=== PATIENT | female | born 1945 | race African-American/Black ===

== ENCOUNTER 2017-07-09 11:05 | Observation (INO) | payer OTHER, MEDICARE ==
[~2017-07-09] VITALS: Ht 162.6 cm; Wt 56.7 kg
--- NOTE | 2017-07-09 11:34 | ED GI/GU/ABDOMINAL COMPLAINT ---
History of Present Illness General Chief Complaint: Lower Extremity Problems Stated Complaint: LFT GROIN PAIN Source: patient Exam Limitations: poor historian Vital Signs & Intake/Output Vital Signs & Intake/Output Vital Signs Date Time Temp Pulse Resp B/P B/P Pulse O2 O2 Flow FiO2 Mean Ox Delivery Rate 07/09 1845 98.3 103 18 156/52 96 Room Air 07/09 1701 98.3 101 20 187/76 99 Room Air 07/09 1701 98.3 101 20 187/76 99 Room Air 07/09 1643 92 170/78 07/09 1530 97.7 88 18 166/78 98 Room Air 07/09 1340 97.7 80 18 158/70 99 Room Air 07/09 1334 97.7 97 16 210/92 07/09 1307 97.7 97 16 210 100 Room Air 07/09 1226 200/94 07/09 1154 96.4 145 16 220/94 07/09 1146 220/90 07/09 1146 16 212/82 100 Room Air 07/09 1140 100 07/09 1111 96.4 145 18 218/83 97 Room Air Allergies Coded Allergies: No Known Allergies (07/09/17) Reconcile Medications Aspirin (Aspirin*) 81 MG TAB.CHEW 81 MG PO DAILY Heart Health . Cholecalciferol (Vitamin D3) 1,000 UNIT TABLET 2,000 IU PO DAILY Vitamin D deficiency . Labetalol HCl 300 MG TABLET 1 TAB PO BID bp . Lisinopril 40 MG TABLET 1 TAB PO DAILY bp .. Triage Note: PT STATES SHE IS HAVING LOWER ABD PAIN THAT STARTED A COUPLE OF WEEKS AGO. PT STATES SHE IS MOVING HER BOWELS FINE AND DENIES URINARY DIFFICULTY. RTED Triage Nurses Notes Reviewed? yes HPI: This is a 71-year-old female with no known past medical history, not seen a doctor in many years who presents to the ER with chief complaint of left hip and left lower quadrant abdominal pain. Patient states the pain is been there actually for a few weeks. No fever or chills. No urinary symptoms. Normal bowel movements. She denies any headache blurred vision chest pain or shortness of breath. Patient found to be tachycardic and extremely hypertensive in triage. No known history of hypertension. She is a nonsmoker nondrinker. Denies any trauma. She does not have a primary care physician. (Angelica Jimenez MD) ? n Is pt currently ? No (Salomon Carrasco DO) Past History Travel History Traveled to [place] past 21 day No Medical History Any Pertinent Medical History? none Psychosocial History What is your primary language Frisian Tobacco Use: Never used ETOH Use: denies use Illicit Drug Use: denies illicit drug use (Angelica Jimenez MD) Surgical History Surgical History: non-contributory Family History Hx Contributory? No (Salomon Carrasco DO) Review of Systems Review of Systems Constitutional: Denies: chills, fever. EENTM: Reports: no symptoms. Respiratory: Denies: cough, short of breath, sputum production. Cardiovascular: Denies: chest pain. GI: Reports: see HPI (LEFT GROIN), abdominal pain. Genitourinary: Reports: no symptoms. Musculoskeletal: Reports: no symptoms. Skin: Reports: no symptoms. Neurological/Psychological: Reports: no symptoms. Hematologic/Endocrine: Denies: bruising, bleeding, polyuria, polydipsia. Immunologic/Allergic: Denies: splenectomy. All Other Systems: Reviewed and Negative (Angelica Jimenez MD) Physical Exam Physical Exam General Appearance: well developed/nourished, alert, awake, anxious, mild distress Head: atraumatic, normal appearance Eyes: Bilateral: normal appearance, PERRL, EOMI. Ears, Nose, Throat, Mouth: hearing grossly normal, moist mucous membrane Neck: normal inspection, supple, full range of motion Respiratory: normal breath sounds, chest non-tender, no respiratory distress, quiet respiration Cardiovascular: regular rate/rhythm, normal peripheral pulses Peripheral Pulses: 2+ radial (R), 2+ radial (L) Gastrointestinal: non-tender, no organomegaly Back: normal inspection, normal range of motion Extremities: normal range of motion Neurologic/Psych: no motor/sensory deficits, awake, alert, oriented x 3, normal mood/affect Skin: intact, normal color, warm/dry (Angelica Jimenez MD) Physical Exam Gastrointestinal: soft Core Measures ACS in differential dx? Yes Sepsis Present: No Sepsis Focused Exam Completed? No (Salomon Carrasco DO) Progress Plan of Care: Orders Procedure Date/time Status Heart Healthy Diet 07/10 B Active CBC WITHOUT DIFFERENTIAL 07/10 599 Active BASIC ELECTROLYTES PLUS BUN&CR 03/21 0600 Active Heart Healthy Diet 07/09 D Complete TROPONIN LEVEL 07/09 1730 Complete EKG 07/09 1730 Active Teach/Educate 07/09 1714 Active Pain Treatment and Response 07/09 1714 Active Nutritional Intake, Monitor 07/09 1714 Active Isolation 07/09 1714 Active Patient Care Conference 07/09 1714 Active Activity/Ambulation 07/09 1714 Active Pathway - chart 07/09 1628 Active House Staff 07/09 1628 Active Patient Data 07/09 1628 Active Code Status 07/09 1628 Active Add-on Test (ER Only) 07/09 1519 Active LACTIC ACID 07/09 1433 Complete Patient Data 07/[address] in observation 07/09 1355 Active ED Holding Orders 07/09 1355 Active Vital Signs 07/09 1355 Active Code Status 07/09 1355 Complete URINE DRUGS OF ABUSE 07/09 1254 Complete Intake & Output 07/09 1226 Active VIT D 25 HYDROXY 07/09 1137 Active THYROID STIMULATING HORMONE 07/09 1137 Active PHOSPHORUS 07/09 1137 Active MAGNESIUM 07/09 1137 Active GLYCOSYLATED HGB 07/09 1137 Active FREE T4 07/09 1137 Active VITAMIN B12 07/09 1137 Active Telemetry/Diagnostic Radiologic Technologist 07/09 1134 Active BLOOD CULTURE 07/09 1133 Active URINALYSIS 07/09 1133 Complete TROPONIN LEVEL 07/09 1133 Active PARTIAL THROMBOPLASTIN TIME 07/09 1133 Complete PROTHROMBIN TIME 07/09 1133 Complete LACTIC ACID 07/09 1133 Active COMPREHENSIVE METABOLIC PANEL 07/09 1133 Active CBC WITHOUT DIFFERENTIAL 07/09 1133 Complete EKG 07/09 1112 Active Lab Add-on Test 07/09 UNK Active VTE Mechanical Prophylaxis 07/09 UNK Active Vital Signs 07/09 UNK Active Telemetry/Diagnostic Radiologic Technologist 07/09 UNK Complete Intake & Output 07/09 UNK Active Current Medications Sig/Derrick Start time Last Medication Dose Stop Time Status Admin Labetalol HCl 200 MG BID 07/09 2199 AC (Trandate-Normodyne 200MG Tab) Melatonin 3 MG AT BEDTIME 07/09 220 AC (Melatonin) Cholecalciferol 2,000 IU DAILY 07/09 1716 AC 07/09 (Vitamin D) 1847 Acetaminophen 650 MG Q6P PRN 07/09 1630 AC 07/09 (Tylenol) 1712 Aspirin 81 MG DAILY 07/09 1628 AC 07/09 (Aspirin) 1638 Enoxaparin Sodium 40 MG DAILY 07/09 162 AC 07/09 (Lovenox) 1847 Laboratory Tests 07/09/17 1835: Troponin I 0.01 07/09/17 1414: Lactic Acid 1.3 07/09/17 1254: Urine Opiates Screen < 100, Methadone Screen < 40, Barbiturate Screen < 60, Ur Phencyclidine Scrn < 6.00, Amphetamines Screen < 100, U Benzodiazepines Scrn < 85, Urine Cocaine Screen < 50, Urine Cannabis Screen < 5.00, Urine Color STRAW, Urine Clarity CLEAR, Urine pH 7.0, Ur Specific [place] 1.010, Urine Protein NEG, Urine Ketones NEG, Urine Nitrite NEG, Urine Bilirubin NEG, Urine Urobilinogen 0.2, Ur Leukocyte Esterase MOD H, Ur Microscopic SEDIMENT EXAMINED, Urine WBC 1 -3 H, Ur Epithelial Cells FEW, Urine Bacteria FEW H, Urine Hemoglobin NEG, Urine Glucose NEG 07/09/17 1137: Anion Gap 15, Estimated GFR > 60, BUN/Creatinine Ratio 22.9, Glucose 191 H, Hemoglobin A1c Pending, Lactic Acid 2.9 H, Calcium 9.9, Phosphorus 2.8, Magnesium 1.8, Total Bilirubin 0.5, AST 18, ALT 14, Alkaline Phosphatase 57, Troponin I < 0.01, Total Protein 7.0, Albumin 4.2, Globulin 2.8, Albumin/ Globulin Ratio 1.5, Vitamin B12 458, 25-OH Vitamin D Total 16.8 L, TSH 1.670, Free T4 1.34, PT 12.5, INR 1.15, APTT 34, CBC w Diff NO MAN DIFF REQ, RBC 4.25, MCV 85.7, MCH 28.2, MCHC 32.9 L, RDW 14.6 H, MPV 9.4, Gran % 60.1, Lymphocytes % 28.5, Monocytes % 10.5 H, Eosinophils % 0.6, Basophils % 0.3, Absolute Granulocytes 3.5, Absolute Lymphocytes 1.7, Absolute Monocytes 0.6, Absolute Eosinophils 0, Absolute Basophils 0 Microbiology 07/09 1226 BLOOD: Blood Culture - RECD 07/09 1133 BLOOD: Blood Culture - ORD Diagnostic Imaging: Viewed by Me: Radiology Read, CT Scan, Ultrasound. Discussed w/RAD: Radiology Read, CT Scan, Ultrasound. Radiology Impression: PATIENT: JIM SAUNDERS PRESENT AGE: 71 PATIENT ACCOUNT NO: [id number] : 44 LOCATION: [facility] ORDERING PHYSICIAN: Angelica Jimenez MD SERVICE DATE: 07/09/17 EXAM TYPE: CAT - CT ABD & PELVIS W IV CONTRAST EXAMINATION: CT ABDOMEN AND PELVIS WITH CONTRAST CLINICAL INFORMATION: Left lower quadrant abdominal pain and tachycardia. COMPARISON: There are no prior studies for comparison. TECHNIQUE: Multidetector volumetric imaging was performed of the abdomen and pelvis following IV administration of 94 mL of Optiray 320 intravenous contrast. Sagittal and coronal reformatted images were obtained on the technologist's workstation. DLP: To 75.31 mGy-cm FINDINGS: LUNG BASES: The visualized lung bases are unremarkable. LIVER, GALLBLADDER, AND BILIARY TREE: The liver is normal in size, shape, and attenuation. No focal hepatic lesion or biliary ductal dilatation is present. The gallbladder is unremarkable with no evidence of radiopaque gallstones, gallbladder wall thickening, or obvious pericholecystic inflammatory changes. PANCREAS: Unremarkable. SPLEEN: Unremarkable. ADRENAL GLANDS: Unremarkable. KIDNEYS AND URETERS: The kidneys are normal in size, shape, and attenuation. No hydronephrosis, hydroureter, or calculi seen. No perinephric stranding. BLADDER: Unremarkable. GASTROINTESTINAL TRACT: The small bowel loops are unremarkable. Scattered diverticuli are present without evidence of acute diverticulitis. The appendix is unremarkable. ABDOMINAL WALL: No significant hernia is appreciated. LYMPH NODES: Normal. VASCULAR: Unremarkable. PELVIC VISCERA: Unremarkable. OSSEOUS STRUCTURES: Unremarkable. IMPRESSION: No acute or focal findings are noted throughout the abdomen and pelvis, specifically no focal findings are noted to suggest the etiology of the left lower quadrant pain. DICTATED BY: Radha Santiago MD DATE /TIME DICTATED:07/09/171316 WEB DEVELOPER PROGRAMMER:JUJU DATE/TIME TRANSCRIBED: 07/09/171316 CONFIDENTIAL, DO NOT COPY WITHOUT APPROPRIATE AUTHORIZATION. < Electronically signed in Other Vendor System> SIGNED BY: Radha Santiago MD 07/09/17 1328, PATIENT: JIM SAUNDERS PRESENT AGE: 71 PATIENT ACCOUNT NO: [id number] : 44 LOCATION: [facility] ORDERING PHYSICIAN: Angelica Jimenez MD SERVICE DATE: 07/09/17 EXAM TYPE: US - US-UNILATERAL VENOUS DOPPLER EXAMINATION: US TRIPLEX LOWER EXTREMITY, LEFT CLINICAL INFORMATION: Left leg pain/tingling. COMPARISON: None TECHNIQUE: Color- flow triplex imaging with spectral analysis and compression Doppler were performed on the lower extremity. FINDINGS: Respiratory variation, normal compression and augmented flow are noted throughout the lower extremity. The visualized common femoral vein, superficial femoral vein, profunda femoral vein, popliteal vein and midcalf peroneal and posterior tibial venous segments show no evidence of deep venous thrombosis. There is no Woodson's cyst. IMPRESSION: Normal triplex scan without evidence of deep venous thrombosis involving the left lower extremity. DICTATED BY: Chloe Yang MD DATE/TIME DICTATED:07/09/171546 WEB DEVELOPER PROGRAMMER:JUJU DATE/TIME TRANSCRIBED:07/09/171546 CONFIDENTIAL, DO NOT COPY WITHOUT APPROPRIATE AUTHORIZATION. <Electronically signed in Other Vendor System> SIGNED BY: Chloe Yang MD 07/09/17 1551 CXR Impression: PATIENT: JIM SAUNDERS PRESENT AGE: 71 PATIENT ACCOUNT NO: [id number] : 44 LOCATION: [facility] ORDERING PHYSICIAN: Angelica Jimenez MD SERVICE DATE: 07/09/17 EXAM TYPE: RAD - XRY-PORTABLE CHEST XRAY EXAMINATION: XR PORTABLE CHEST CLINICAL INFORMATION: Tachycardia. Abdominal pain. COMPARISON: No relevant prior imaging. TECHNIQUE: Portable frontal view of the chest was obtained. FINDINGS: Cardiac leads overlie the chest. No focal consolidative disease, pleural effusion, or pneumothorax. The cardiac silhouette and upper mediastinal contours are normal. No acute osseous finding. IMPRESSION: Normal chest radiograph. DICTATED BY: Beny Zamora MD DATE/TIME DICTATED:07/09/171242 WEB DEVELOPER PROGRAMMER:JUJU DATE/TIME TRANSCRIBED:07/09/171242 CONFIDENTIAL, DO NOT COPY WITHOUT APPROPRIATE AUTHORIZATION. <Electronically signed in Other Vendor System> SIGNED BY: Beny Zamora MD 07/09/171246 Initial ED EKG: RBBB, TACHYCARDIA Rhythm Strip: sinus tachycardia Hand-Off Endorsed To: Salomon Carrasco DO Endorsed Time: 1500 Pending: labs (Angelica Jimenez MD) Differential Diagnosis: hypertensive urgency (Salomon Carrasco DO) Departure Departure Time of Disposition: 1355 Disposition: STILL A PATIENT Condition: Stable Clinical Impression Primary Impression: Hypertensive urgency Departure Forms: Customer Survey General Discharge Information Prescriptions: Current Visit Scripts Cholecalciferol (Vitamin D3) 2,000 IU PO DAILY #30 TAB . Aspirin (Aspirin*) 81 MG PO DAILY #30 TAB . Lisinopril 1 TAB PO DAILY #30 TAB .. Labetalol HCl 1 TAB PO BID #60 TAB . Observation Note Spoke With: Ashley Ames MD Physician Advisor Notified: AUGUSTO ROLDAN,MADELYN Mccray Place Patient In: Non-ED OBS Care Area Rationale for Observation: My rational for observation is as follows [TELE MONITOR, MEDICATION MANAGEMENT FOR UNCONTROLLED HTN, F/O REPEAT LACTIC ACID, F/U DVT SCAN, CONSIDER CARDIOLOGY EVALUATION]. (Angelica Jimenez MD) Departure Comments 07/09/17 The patient was placed in, inpatient observation by Dr. Jimenez. (Salomon Carrasco DO) Critical Care Note Critical Care Note Critical Care Time: 30-74 min (Angelica Jimenez MD)
[2017-07-09 11:46] LABS: ABSOLUTE BASOPHIL COUNT 0 /CUMM (0.0-0.2); ABSOLUTE EOSINOPHIL COUNT 0 /CUMM (0.0-0.7); ABSOLUTE GRANULOCYTE CT 3.5 /CUMM (1.4-6.5); ABSOLUTE LYMPH COUNT 1.7 /CUMM (1.2-3.4)
[2017-07-09 11:54] LABS: ABSOLUTE MONOCYTE COUNT 0.6 /CUMM (0.10-0.60); BASOPHIL % 0.3 % (0.0-2.0); EOSINOPHIL % 0.6 % (0-5); GRANULOCYTE % 60.1 % (42.2-75.2); HEMATOCRIT 36.4 % (37-47); MEAN CORPUSCULAR HGB 28.2 PG (27.0-31.0); MEAN CORPUSCULAR HGB CONC 32.9 G/DL (33.0-37.0); MEAN CORPUSCULAR VOLUME 85.7 FL (81.0-99.0); MEAN PLATELET VOLUME 9.4 FL (7.4-10.4); PLATELET COUNT 300 /CUMM (130-400); PT 12.5 SEC (9.4-12.5); PTT 34 SEC (25-37); RBC DISTRIBUTION WIDTH 14.6 % (11.5-14.5); RED BLOOD CELL CT 4.25 /CUMM (4.20-5.40); WHITE BLOOD CELL COUNT 5.9 /CUMM (4.8-10.8)
--- NOTE | 2017-07-09 12:47 | RADIOLOGY REPORT ---
EXAMINATION: XR PORTABLE CHEST CLINICAL INFORMATION: Tachycardia. Abdominal pain. COMPARISON: No relevant prior imaging. TECHNIQUE: Portable frontal view of the chest was obtained. FINDINGS: Cardiac leads overlie the chest. No focal consolidative disease, pleural effusion, or pneumothorax. The cardiac silhouette and upper mediastinal contours are normal. No acute osseous finding. IMPRESSION: Normal chest radiograph.
--- NOTE | 2017-07-09 13:28 | CT SCAN REPORT ---
EXAMINATION: CT ABDOMEN AND PELVIS WITH CONTRAST CLINICAL INFORMATION: Left lower quadrant abdominal pain and tachycardia. COMPARISON: There are no prior studies for comparison. TECHNIQUE: Multidetector volumetric imaging was performed of the abdomen and pelvis following IV administration of 94 mL of Optiray 320 intravenous contrast. Sagittal and coronal reformatted images were obtained on the technologist's workstation. DLP: To 75.31 mGy-cm FINDINGS: LUNG BASES: The visualized lung bases are unremarkable. LIVER, GALLBLADDER, AND BILIARY TREE: The liver is normal in size, shape, and attenuation. No focal hepatic lesion or biliary ductal dilatation is present. The gallbladder is unremarkable with no evidence of radiopaque gallstones, gallbladder wall thickening, or obvious pericholecystic inflammatory changes. PANCREAS: Unremarkable. SPLEEN: Unremarkable. ADRENAL GLANDS: Unremarkable. KIDNEYS AND URETERS: The kidneys are normal in size, shape, and attenuation. No hydronephrosis, hydroureter, or calculi seen. No perinephric stranding. BLADDER: Unremarkable. GASTROINTESTINAL TRACT: The small bowel loops are unremarkable. Scattered diverticuli are present without evidence of acute diverticulitis. The appendix is unremarkable. ABDOMINAL WALL: No significant hernia is appreciated. LYMPH NODES: Normal. VASCULAR: Unremarkable. PELVIC VISCERA: Unremarkable. OSSEOUS STRUCTURES: Unremarkable. IMPRESSION: No acute or focal findings are noted throughout the abdomen and pelvis, specifically no focal findings are noted to suggest the etiology of the left lower quadrant pain.
--- NOTE | 2017-07-09 15:22 | History & Physical ---
Paola ROLDAN,[facility] 07/09/17 1521: General Information and [facility] MD Statement: I have seen and personally examined JIM BHARDWAJ and documented this H&P. The patient is a 71 year old F who presented with a patient stated chief complaint of [left groin and leg pain]. Source of Information: patient Exam Limitations: no limitations History of Present Illness: Ms. Bhardwaj is a 71-year-old female with no significant past medical history, did not seek medical attention in at least 10 years who presented to ED for first time with chief complaint of left groin and leg pain that has been going for 3-4 weeks. Patient denied any history of fall or trauma, reported achy pain in left groin that radiated to the leg, did not improve with exercise, patient did not use any [id number] medication, today pain got severe sharp in nature 7/10 in severity associated with pins and needles sensation but no weakness. Patient denied any chest pain, palpitation, shortness of breath, headache, dizziness, blurry vision. Never had diagnosis with hypertension. Upon presentation patient was found to have blood pressure 218/83 and heart rate of 145, she does report palpitation at time of presentation because she was feeling anxious but denied any other symptoms. Patient reported postnasal drip and sinus congestion that she thinks because of her poor dental hygiene, has multiple fallen teeth on exam. Allergies/Medications Allergies: Coded Allergies: No Known Allergies (07/09/17) Home Med list No Known Home Medications Past History Travel History Traveled to [place] past 21 day No Medical History Neurological: NONE EENT: NONE Cardiovascular: NONE Respiratory: NONE Gastrointestinal: NONE Hepatic: NONE Renal: NONE Musculoskeletal: NONE Psychiatric: NONE Endocrine: NONE Surgical History Surgical History: none Past Family/Social History Family History Relations & Conditions if any MOTHER, . FATHER, . Relation not specified for: Diabetes mellitus (DM) FH: hypertension Psychosocial History Where do you live? Home Who Do You Live With? self Services at Home: None Primary Language: Liberian Smoking Status: Never Smoked ETOH Use: denies use Illicit Drug Use: denies illicit drug use Functional Ability ADLs Independent: dressing, eating, toileting, bathing. Ambulation: independent IADLs Independent: shopping, housework, finances, food prep, telephone, transportation , medication admin. Employment History Employment Employed Review of Systems Review of Systems Constitutional: Denies: chills, diaphoresis, fever, malaise, weakness. EENTM: Denies: blurred vision, double vision, visual changes, nasal congestion, throat pain. Cardiovascular: Denies: chest pain, orthopena, palpitations, peripheral edema. Respiratory: Denies: cough, orthopnea, short of breath, sputum production, stridor. GI: Denies: abdominal pain, bloating, constipation, diarrhea, distention, nausea, vomiting. Genitourinary: Denies: dysuria, frequency, hematuria. Musculoskeletal: Reports: muscle pain. Denies: back pain, joint pain, joint swelling, muscle stiffness. Skin: Denies: rash. Neurological/Psychological: Denies: confusion, headache. Hematologic/Endocrine: Denies: bruising, bleeding. Exam & Diagnostic Data Last 24 Hrs of Vital Signs/I&O Vital Signs Date Time Temp Pulse Resp B/P B/P Pulse O2 O2 Flow FiO2 Mean Ox Delivery Rate 07/09 1701 98.3 101 20 187/76 99 Room Air 07/09 1643 92 170/78 07/09 1530 97.7 88 18 166/78 98 Room Air 07/09 1340 97.7 80 18 158/70 99 Room Air 07/09 1334 97.7 97 16 210/92 07/09 1307 97.7 97 16 210/92 100 Room Air 07/09 1226 200/94 07/09 1154 96.4 145 16 220/94 07/09 1146 220/90 07/09 1146 16 212/82 100 Room Air 07/09 1140 100 03 1111 96.4 145 18 218/83 97 Room Air Intake & Output 07/09 1600 07/09 0800 07/09 0000 Intake Total 1000 Output Total Balance 1000 Intake, IV 1000 Patient 56.699 kg Weight Weight Reported by Patient Measurement Method Physical Exam General Appearance Alert, Oriented X3, Cooperative, No Acute Distress Skin No Rashes, No Breakdown, No Significant Lesion Skin Temp/Moisture Exam: Warm/Dry HEENT Atraumatic, PERRLA, EOMI, Mucous Membr. moist/pink Neck Supple, No JVD Lymphatic No cervical lymphadenopathy Cardiovascular Regular Rate, Normal S1, Normal S2, tachycardic Lungs Clear to Auscultation, Normal Air Movement Abdomen Normal Bowel Sounds, Soft, No Tenderness Neurological Normal Speech, Strength at 5/5 X4 Ext, Normal Tone, Sensation Intact, Cranial Nerves 3-12 NL, Reflexes 2+ Extremities No Clubbing, No Cyanosis, No Edema, Normal Pulses Assessment/Plan Assessment: Patient is 71-year-old with no previous past medical history presented to ED with chief complaint of left groin and leg pain that has been going for few weeks, she did not use any medication to alleviate. Upon presentation was found to have hypertensive urgency blood pressure 218/83 totally asymptomatic, no previous history of hypertension and no history of smoking or illicit drug that can precipitate this high blood pressure. Labs presented to H&H .4, white blood cell 5.9, platelet 300 Electrolyte sodium 142, potassium 3.9, BUN/creatinine 16/0.7, glucose 191, lactic acid 2.9 Tropes negative, EKG sinus tachycardia with QTC prolongation 514 CT abdomen and pelvis negative for any pathology Chest x-ray Normal chest radiograph. Venous Doppler study of left leg negative for DVT Problem list #Hypertensive urgency--new onset hypertension #Left groin and leg pain Plan Observe in telemetry floor Vitals every shift Urine tox Obtain magnesium and phosphorus Obtain TSH and free T4 Obtain vitamin B12 and vitamin D level Obtain hemoglobin A1c Cardiac consultation Troponin and EKG We will start labetalol 200 mg twice daily based on over phone conversation with security investigator Dr. Rahman Aspirin 81 mg Diet heart healthy DVT prophylaxis Lovenox Code full As Ranked By This Provider Problem List: 1. Hypertensive urgency Core Measures/Misc (01/06) Acute Coronary Syndrome ACS Diagnosis: No Congestive Heart Failure Congestive Heart Failure Diagnosis No Cerebrovascular Accident CVA/TIA Diagnosis: No VTE (View Protocol) VTE Risk Factors Age>40 No Mechanical VTE Prophylaxis d/t N/A MechProphylax Ordered No VTE Pharm Prophylaxis d/t NA PharmProphylax ordered Sepsis (View protocol) Sepsis Present: No Saundra Clemons MD 07/09/17 2227: Attending MD Review Statement Attending Statement Attending MD Statement: examined this patient, discuss w/resident/PA/GLASS INSTALLER TECHNICIAN, agreed w/resident/PA/GLASS INSTALLER TECHNICIAN, reviewed EMR data (avail), discussed with nursing, discussed with case mgmt, amended to note Attending Assessment/Plan: Patient is a 71-year-old female with no known medical history of prior to presentation and have if primary care provider presented to the emergency room with complaint of worsening left groin pain radiating down the leg that has been progressive for the past 2 weeks. In the ER she was mildly markedly hypertensive with systolic blood pressure in the 200s. She was also noted to the tachycardia with EKG revealing sinus tachycardia. Blood pressure improved after medication administration the ER. She remains tachycardic and was referred to the medical service for further evaluation. On examination she was not in any painful distress. Abdomen exam was benign. She has normal range of motion movement of both hips. She has no tenderness on examination of the groin area or lower extremity. Problems: 1. Hypertensive urgency. 2. Sinus tachycardia 3. Left groin pain. Plan: -In view of sinus tachycardia and elevated blood pressure patient disposition is unclear. Observe patient on the telemetry unit -Trend cardiac enzymes, follow-up TSH. Update echocardiogram. -Begin patient on metoprolol 25 mg orally twice a day for blood pressure and rate controlled. -Cardiology consultation. -I like to be clinically appears to be musculoskeletal allergy. Pain management with Tylenol. May use Ultram for breakthrough pain.
--- NOTE | 2017-07-09 15:51 | ULTRASOUND REPORT ---
EXAMINATION: US TRIPLEX LOWER EXTREMITY, LEFT CLINICAL INFORMATION: Left leg pain/tingling. COMPARISON: None TECHNIQUE: Color-flow triplex imaging with spectral analysis and compression Doppler were performed on the lower extremity. FINDINGS: Respiratory variation, normal compression and augmented flow are noted throughout the lower extremity. The visualized common femoral vein, superficial femoral vein, profunda femoral vein, popliteal vein and midcalf peroneal and posterior tibial venous segments show no evidence of deep venous thrombosis. There is no Woodson's cyst. IMPRESSION: Normal triplex scan without evidence of deep venous thrombosis involving the left lower extremity.
[2017-07-09 17:01] VITALS: BP 187/76
[2017-07-09 18:45] VITALS: BP 156/52
[2017-07-09 21:00] VITALS: BP 162/68
[2017-07-09 22:00] VITALS: BP 140/72
--- NOTE | 2017-07-09 23:47 | Cons- Cardiology ---
General Information and HPI Consulting Request Date of Consult: 07/09/17 Requested By: Saundra Clemons MD History of Present Illness: Ms. Bhardwaj is a 71 year old female with history of hypertension who has not seen a physician in several years. She presented to the ER for evaluation of a severe , sharp left groin discomfort that radiates down her left leg. In the ER the patient was noted to be severely hypertensive with a blood pressure of 218mmHg systolic. She was also tachycardic with a heart rate of 145.The patient denies chest pain, pressure, tightness, shortness of breath, lightheadedness or palpitations. She denies any visual or urinary problems. At baseline this patient is midly active. Allergies/Medications Allergies: Coded Allergies: No Known Allergies (07/09/17) Home Med List: No Known Home Medications Review of Systems Review of Systems: A twelve point review of systems is unremarkable. Past History Travel History Traveled to [place] past 21 day No Medical History Blood Transfusion Hx: No Neurological: NONE EENT: NONE Cardiovascular: NONE Respiratory: NONE Gastrointestinal: NONE Hepatic: NONE Renal: NONE Musculoskeletal: NONE Psychiatric: NONE Endocrine: NONE Blood Disorders: NONE Cancer(s): NONE [employer]ING [employer]ER/Reproductive: NONE Surgical History Surgical History: non-contributory Family History Relations & Conditions If Any: MOTHER (coronary artery disease). . FATHER, . Relation not specified for: Diabetes mellitus (DM) FH: hypertension Psychosocial History Where Do You Live? Home Who Do You Live With? self Services at Home: None Primary Language: French Smoking Status: Never Smoked ETOH Use: denies use Illicit Drug Use: denies illicit drug use Functional Ability ADLs Independent: dressing, eating, toileting, bathing. Ambulation: independent IADLs Independent: shopping, housework, finances, food prep, telephone, transportation , medication admin. Employment History Employment: Employed Exam & Diagnostic Data Vital Signs and I&O Vital Signs Date Time Temp Pulse Resp B/P B/P Pulse O2 O2 Flow FiO2 Mean Ox Delivery Rate 07/09 2100 98.8 71 20 162/68 98 Room Air 07/09 204 71 16207/09 1845 98.3 103 18 156/52 96 Room Air 07/09 1701 98.3 101 187/ 99 Room Air 07/09 170 98.3 101 187/76 99 Room Air 07/09 1643 92 170/78 07/09 1530 97.7 88 18 166/78 98 Room Air 07/09 1340 97.7 80 18 158/70 99 Room Air 07/09 1334 97.7 97 16 210/92 07/09 1307 97.7 97 16 210/92 100 Room Air 07/09 1226 200/94 07/09 1154 96.4 145 16 220/94 07/09 1146 220/90 07/09 1146 16 212/82 100 Room Air 07/09 1140 100 07/09 1111 96.4 145 18 218/83 97 Room Air Intake & Output 07/09 1600 07/09 0800 07/09 0000 07/08 1600 07/08 0800 07/08 0000 Intake Total 1000 Output Total Balance 1000 Intake, IV 1000 Patient 125 lb Weight Weight Reported by Patient Measurement Method Physical Exam: General: WD/WN female in NAD; alert and oriented x 3 HEENT: NC/AT, PERRL, EOMI Neck: no JVD, no carotid bruit Heart: tachycardic and regular Lungs: clear bilaterally Abdomen: soft, NT, +ve bowel sounds Ezxtremities: no edema Assessment/Plan Assessment/Plan * This patient is tachycardic and consideration has to be given to a tachycardia induced cardiomyopathy with decreased EF. If she does demonstrate a low stroke volume (EF) then she would likely have a compensatory increase in heart rate to maintain her cardiac output. * Obtain an echocardiogram to assess her overall EF and to assess for left ventricular hypertrophy. * Low sodium diet. * Continue Labetolol 200mg BID. Begin a statin and Lisinopril 20mg daily. Begin aspirin 81mg daily. Check a fasting lipid profile. Consult Acknowledgment - Thank you for your consult request.
[2017-07-10 07:18] VITALS: BP 150/68
--- NOTE | 2017-07-10 07:35 | PN-Observation ---
DeniRee 07/10/17 0735: Observation Note Observation Note _ I have personally examined JIM SAUNDERS. her disposition is uncertain at this time. Before a determination can be made, she requires continued observation for the following reasons [Hypertension]. Assessment/Plan Medical Assessment: Ms. Saunders is 71-year-old with no previous past medical history presented to ED with chief complaint of left groin and leg pain that has been going for few weeks, she did not use any medication to alleviate. Upon presentation was found to have hypertensive urgency blood pressure 218/83 totally asymptomatic, no previous history of hypertension and no history of smoking or illicit drug that can precipitate this high blood pressure. Labs presented to [facility] 12/36.4, white blood cell 5.9, platelet 300 Electrolyte sodium 142, potassium 3.9, BUN/creatinine 16/0.7, glucose 191, lactic acid 2.9 Tropes negative, EKG sinus tachycardia with QTC prolongation 514 CT abdomen and pelvis negative for any pathology Chest x-ray Normal chest radiograph. Venous Doppler study of left leg negative for DVT Problem list #Hypertensive urgency--new onset hypertension #Left groin and leg pain Plan Observe in telemetry floor, pending discharge today Vitals every shift Urine tox negative BP resolved to 160s/90s overnight after use of anti-HTN meds, will continue on same regimen until outpatient f/u. BEP WNL except vitamin D defficient. will replete acoordingly. Cardiac consultation appreciated. Troponin and EKG x 3 negative. We started labetalol 200 mg twice daily based on over phone conversation with research consultant Dr. Rahman, will continue this med for her BP control Aspirin 81 mg for heart healthy Diet heart healthy DVT prophylaxis Lovenox Code full Problem List: 1. Hypertensive urgency Subjective Follow-up For: 1. Hypertensive urgency. 2. Sinus tachycardia 3. Left groin pain. Tele-Events Since Last Visit: NST 60s - 90s Subjective: no overnight event. Patient had no specific complaint and denied weakness/ headache/dizziness/CP/SOB/Ab pain. She ambulated while we round without any signs of falling/unsteady gait. Denied more leg groin pain. Review of Systems Constitutional: Reports: see HPI. Objective Last 24 Hrs of Vital Signs/I&O Vital Signs Date Time Temp Pulse Resp B/P B/P Pulse O2 O2 Flow FiO2 Mean Ox Delivery Rate 07/10 1022 95 162/90 07/10 1022 95 162/90 07/10 1021 95 162/90 07/10 0800 Room Air 07/10 0718 97.5 83 20 150/68 98 Room Air 07/09 2200 140/72 07/09 2100 98.8 71 20 162/68 98 Room Air 07/09 2041 71 162/68 07/09 1845 98.3 103 18 156/52 96 Room Air 07/09 1701 98.3 101 20 187/76 99 Room Air 07/09 1701 98.3 101 20 187/76 99 Room Air 07/09 1643 92 170/78 07/09 1530 97.7 88 18 166/78 98 Room Air 07/09 1340 97.7 80 18 158/70 99 Room Air 07/09 1334 97.7 97 16 210/92 07/09 1307 97.7 97 16 210/92 100 Room Air 07/09 1226 200/94 Intake & Output 07/10 1600 07/10 0800 07/10 0000 Intake Total 240 240 Output Total Balance 240 240 Intake, Oral 240 240 Number 0 0 Bowel Movements Patient 56.699 kg Weight Physical Exam General Appearance: Alert, Oriented X3, Cooperative, No Acute Distress Cardiovascular: Regular Rate Lungs: Clear to Auscultation, Normal Air Movement Abdomen: Soft, No Tenderness Neurological: Normal Gait, Normal Speech Extremities: No Cyanosis, No Edema, Normal Pulses Current Medications: Current Medications Sig/Derrick Start time Last Medication Dose Route Stop Time Status Admin Acetaminophen 650 MG Q6P PRN 07/09 1630 AC 07/09 PO 1712 Aspirin 0 .STK-MED ONE 07/09 1644 DC PO Aspirin 81 MG DAILY 07/09 1628 AC 07/10 PO 1022 Atorvastatin Calcium 40 MG 1700 07/10 1700 AC PO Cholecalciferol 2,000 IU DAILY 07/09 1716 AC 07/10 PO 1022 Enoxaparin Sodium 40 MG DAILY 07/09 1628 AC 07/10 SC 1022 Hydralazine HCl 10 MG ONCE ONE 07/09 1330 DC 07/09 IV 07/09 1331 1334 Hydralazine HCl 0 .STK-MED ONE 07/09 1317 DC .ROUTE Labetalol HCl 200 MG BID 07/09 2200 AC 07/10 PO 1022 Lisinopril 20 MG DAILY 07/10 1000 AC 07/10 PO 1022 Melatonin 3 MG AT BEDTIME 07/09 2200 AC PO Sodium Chloride 1,000 ML BOLUS ONE 07/09 1400 DC 07/09 IV 07/09 1459 1530 Sodium Chloride 1,000 ML BOLUS ONE 07/09 1145 DC 07/09 IV 07/09 1244 1142 Last 24 Hrs of Labs/Mics: Laboratory Tests 07/10/17 0615: Anion Gap 9, Estimated GFR > 60, BUN/Creatinine Ratio 17.1, Triglycerides 93, Cholesterol 197, LDL Cholesterol, Calc 102, HDL Cholesterol 77 H, Cholesterol/ HDL Ratio 3, CBC w Diff MAN DIFF ORDERED, RBC 3.57 L, MCV 86.7, MCH 28.4, MCHC 32.7 L, RDW 15.0 H, MPV 9.7, Gran % 38.3 L, Lymphocytes % 44.7, Monocytes % 13.4 H, Eosinophils % 3.0, Basophils % 0.6, Absolute Granulocytes 1.5, Absolute Lymphocytes 1.8, Absolute Monocytes 0.5, Absolute Eosinophils 0.1, Absolute Basophils 0, Platelet Estimate ADEQUATE, Normochromic RBCs VERIFIED, Anisocytosis 1+ 07/09/17 1835: Troponin I 0.01 07/09/17 1414: Lactic Acid 1.3 07/09/17 1254: Urine Opiates Screen < 100, Methadone Screen < 40, Barbiturate Screen < 60, Ur Phencyclidine Scrn < 6.00, Amphetamines Screen < 100, U Benzodiazepines Scrn < 85, Urine Cocaine Screen < 50, Urine Cannabis Screen < 5.00, Urine Color STRAW, Urine Clarity CLEAR, Urine pH 7.0, Ur Specific Carbon 1.010, Urine Protein NEG, Urine Ketones NEG, Urine Nitrite NEG, Urine Bilirubin NEG, Urine Urobilinogen 0.2, Ur Leukocyte Esterase MOD H, Ur Microscopic SEDIMENT EXAMINED, Urine WBC 1 -3 H, Ur Epithelial Cells FEW, Urine Bacteria FEW H, Urine Hemoglobin NEG, Urine Glucose NEG Microbiology 07/09 1226 BLOOD: Blood Culture - RUFINO Clemons MD,Saundra 07/10/17 1344: Observation Note Observation Note _ I have personally examined JIM SAUNDERS her disposition is uncertain at this time. Before a determination can be made, she requires continued observation for the following reasons []. Addendum Note Addendum Patient seen and examined. Resting comfortably not in any acute distress. No issues overnight. No events on telemetry monitoring. Heart rate has improved with the improvement of her blood pressure. This morning she continues to deny any chest pain shortness of breath or palpitations. She reports that her left heel pain has improved. She does continue to complain of some cramping in the left thigh. She reports that it happens with rest and activity. Venous Doppler done yesterday showed no evidence of deep vein thrombosis. On examination she has no calf swelling or tenderness. Her extremity is not cool to touch. Distal pulses are weakly palpable. She does not have an obviously ischemic event on physical examination. Cardiology follow-up appreciated. She is also noted to have a drop in her hemoglobin overnight. We have no previous labs for comparison here. Echocardiogram report noted. Recommendations: -We will give patient an additional dose of lisinopril 20 mg and labetalol 100 mg this afternoon. If patient blood pressure tolerates this she will be discharged on this regimen. -We will repeat hemoglobin level this afternoon and check a stool guaiac if possible. If no evidence of bleeding noted patient may be discharged with outpatient follow-up. If there is evidence of ongoing bleeding she will require further inpatient workup. -She will be provided referral to primary care provider which will obtain necessary health maintenance workup and follow-up. This has been discussed with the patient. She verbalized understanding. -If her hemoglobin level is stable this afternoon and blood pressure tolerates her regimen she may be discharged later on today.
[2017-07-10 08:07] LABS: ABSOLUTE BASOPHIL COUNT 0 /CUMM (0.0-0.2); ABSOLUTE EOSINOPHIL COUNT 0.1 /CUMM (0.0-0.7); ABSOLUTE LYMPH COUNT 1.8 /CUMM (1.2-3.4); MEAN CORPUSCULAR HGB 28.4 PG (27.0-31.0)
[2017-07-10 08:57] LABS: ABSOLUTE GRANULOCYTE CT 1.5 /CUMM (1.4-6.5); ABSOLUTE MONOCYTE COUNT 0.5 /CUMM (0.10-0.60); BASOPHIL % 0.6 % (0.0-2.0); GRANULOCYTE % 38.3 % (42.2-75.2); MEAN CORPUSCULAR HGB CONC 32.7 G/DL (33.0-37.0); MEAN CORPUSCULAR VOLUME 86.7 FL (81.0-99.0); MEAN PLATELET VOLUME 9.7 FL (7.4-10.4); PLATELET COUNT 233 /CUMM (130-400); RED BLOOD CELL CT 3.57 /CUMM (4.20-5.40)
[2017-07-10 10:21] VITALS: BP 162/90
[2017-07-10] MEDS ORDERED: VITAMIN D31000 UNI2 PO ×2 (12:03→15:42)
[2017-07-10] MEDS ORDERED: LISINOPRIL20 M1 PO (12:03)
[2017-07-10] MEDS ORDERED: ASPIRIN81 M4 PO ×2 (12:03→15:42)
[2017-07-10] MEDS ORDERED: LABETALOL HCL200 M1 PO (12:03)
[2017-07-10] MEDS ORDERED: ATORVASTATIN CA40 M1 PO (12:03)
--- NOTE | 2017-07-10 12:06 | Patient Discharge Instructions ---
Discharge Instructions General Discharge Information Special Instructions: - Please follow up with your primary care physician Dr. Hoyt within 1-2 weeks of discharge. Inform your primary care physician of this admission to [facility]. - Continue your current medications per discharge instructions. - Please watch for these problems: Fever, Chills, Nausea, Vomiting, Shortness of Breath, Productive Cough, Chest Pain/Discomfort, Abdominal Pain, Active Bleeding or Bloody urine/stool. Diet Continue normal diet: Yes Recommended Diet: Heart Healthy Activity Full Activity/No Limits: Yes Acute Coronary Syndrome Inclusion Criteria At DC or during hospital stay patient has or had the following: ACS DIAGNOSIS No Discharge Core Measures Meds if any: Prescribed or Continued at Discharge Meds if any: NOT Prescribed or Continued at Discharge Congestive Heart Failure Inclusion Criteria At DC or during hospital stay patient has or had the following: CHF DIAGNOSIS No Discharge Core Measures Meds if any: Prescribed or Continued at Discharge Meds if any: NOT Prescribed or Continued at Discharge Cerebrovascular accident Inclusion Criteria At DC or during hospital stay patient has or had the following: CVA/TIA Diagnosis No Discharge Core Measures Meds if any: Prescribed or Continued at Discharge Meds if any: NOT Prescribed or Continued at Discharge Venous thromboembolism Inclusion Criteria VTE Diagnosis No VTE Type NONE VTE Confirmed by (Test) NONE Discharge Core Measures - Per Current guidelines, there needs to be overlap - treatment for the first 5 days of Warfarin therapy. - If discharged on Warfarin prior to 5 days of - overlap therapy, the patient will need to be - assessed for post discharge needs including - *Post discharge parental anticoagulation - *Warfarin and/or parental anticoagulation education - *Follow up date to check INR post discharge At least 5 days overlap therapy as Inpatient No Meds if any: Prescribed or Continued at Discharge Note: Overlap Therapy is Warfarin and Anticoagulant Meds if any: NOT Prescribed or Continued at Discharge
--- NOTE | 2017-07-10 12:51 | ECHOCARDIOGRAM REPORT ---
JIM SAUNDERS Age: 71 : 1945 Gender: F Exam Date: 07/10/2017 09:58 Exam Location: 1 [address] Ht (in): 64 Wt (lb): 125 BSA: 1.60 BP: 150 / 68 Ordering Physician: Emili Nicolas MD Referring Physician: Emili Nicolas MD Technologist: Carlos Celis [facility] Room Number: 179-1 Indications: CARDIOMYOPATHY Rhythm: Sinus Technical Quality: good FINDINGS Left Ventricle Normal left ventricular size with mild left ventricular hypertrophy. Normal systolic function with no obvious regional wall motion abnormalities. Normal left ventricular diastolic filling pattern for age. The ejection fraction is visually estimated at 70%. Right Ventricle The right ventricle is normal in size and function. Right Atrium The right atrium is normal in size. Left Atrium The left atrium is normal in size. The interatrial septum is intact. Mitral Valve The mitral valve demonstrates mild posterior annular calcification with normal function. There is mild mitral regurgitation. Aortic Valve Structurally normal aortic valve without significant sclerosis or stenosis. There is no aortic regurgitation. Tricuspid Valve The tricuspid valve is normal in structure and function. There is no tricuspid regurgitation. Pulmonic Valve Structurally normal pulmonic valve. There is no pulmonic regurgitation. Pericardium Normal pericardium without effusion. No pleural effusion. Great Vessels Normal aortic root dimension. The aortic arch and great vessels are well seen and are normal. CONCLUSIONS 1. Normal EF of 70%. 2. Mild left ventricular hypertrophy. 3. Mild mitral regurgitation. Jair Rahman M.D. (Electronically Signed) Final Date: 10 July 2017 12:51 MEASUREMENTS (Male / Female) Normal Values 2D ECHO LV Diastolic Diameter PLAX 4.3 cm 4.2 - 5.9 / 3.9 - 5.3 cm LV Systolic Diameter PLAX 2.4 cm 2.1 - 4.0 cm LV Fractional Shortening PLAX 44.2 % 25 - 46 % LV Ejection Fraction 2D Teich 75.7 % IVS Diastolic Thickness 1.0 cm LVPW Diastolic Thickness 1.0 cm LV Relative Wall Thickness 0.5 RV Internal Dim ED PLAX 2.6 cm 1.9 - 3.8 cm LVOT Diameter 1.8 cm Aortic Root Diameter 2.3 cm LA Systolic Diameter LX 2.8 cm 3.0 - 4.0 / 2.7 - 3.8 cm LA Volume 30.0 cm 18 - 58 / 22 - 52 cm Ascending Aorta Diameter 2.2 cm DOPPLER AV Peak Velocity 143.0 cm/s AV Peak Gradient 8.2 mmHg AV Mean Velocity 88.9 cm/s AV Mean Gradient 4.0 mmHg AV Velocity Time Integral 29.1 cm LVOT Peak Velocity 98.5 cm/s LVOT Peak Gradient 3.9 mmHg LVOT Mean Velocity 59.3 cm/s LVOT Mean Gradient 2.0 mmHg LVOT Velocity Time Integral 29.7 cm LVOT Stroke Volume 75.6 cm AV Area Cont Eq vti 2.6 cm AV Area Cont Eq pk 1.8 cm MV Peak Velocity 163.0 cm/s MV Peak Gradient 10.6 mmHg MV Mean Velocity 105.0 cm/s MV Mean Gradient 5.0 mmHg Mitral E Point Velocity 119.0 cm/s Mitral A Point Velocity 124.0 cm/s Mitral E to A Ratio 1.0 MV PHT Velocity 167.0 cm/s MV Deceleration Ellis 922.0 cm/s MV Pressure Half Time 54.3 ms MV Area PHT 4.0 cm MV Deceleration Time 229.0 ms PV Peak Velocity 109.0 cm/s PV Peak Gradient 4.8 mmHg PV Mean Velocity 78.8 cm/s PV Mean Gradient 3.0 mmHg PV Velocity Time Integral 21.2 cm
--- NOTE | 2017-07-10 12:56 | PN- Cardiology ---
Subjective Subjective: * Leg discomfort is greatly improved. No other complaints. * sinus rhythm * normal EF of 70% with mild LVH and mild mitral regurgitation. * BP improved but not to goal. Objective Vital Signs and I&Os Vital Signs Date Time Temp Pulse Resp B/P B/P Pulse O2 O2 Flow FiO2 Mean Ox Delivery Rate 07/10 1022 95 162/90 07/10 1022 95 162/90 07/10 1021 95 162/90 07/10 0800 Room Air 07/10 0718 97.5 83 20 150/68 98 Room Air 07/09 2200 140/72 07/09 2100 98.8 71 20 162/68 98 Room Air 07/09 2041 71 162/68 07/09 1845 98.3 103 18 156/52 96 Room Air 07/09 1701 98.3 101 20 187/76 99 Room Air 07/09 1701 98.3 101 20 187/76 99 Room Air 07/09 1643 92 170/78 07/09 1530 97.7 88 18 166/78 98 Room Air 07/09 1340 97.7 80 18 158/70 99 Room Air 07/09 1334 97.7 97 16 210/92 07/09 1307 97.7 97 16 210/92 100 Room Air Intake & Output 07/10 1600 07/10 0800 07/10 0000 07/09 1600 07/09 0800 07/09 0000 Intake Total 589 509 7267 Output Total Balance 681 187 0267 Intake, IV 1000 Intake, Oral 240 240 Number 0 0 Bowel Movements Patient 125 lb 125 lb Weight Weight Reported by Patient Measurement Method Physical Exam: General: WD/WN female in NAD; alert and oriented x 3 HEENT: NC/AT, PERRL, EOMI Neck: no JVD, no carotid bruit Heart: RRR w/o murmur Lungs: clear bilaterally Abdomen: soft, NT, +ve bowel sounds Ezxtremities: no edema Assessment/Plan Assessment/Plan * This patient is doing much better. She has a normal EF with mild LVH and mild MR on her echocardiogram. Her TFT's are normal and she is only mildly anemic. Increase Labetolol to 300mg BID and increase Lisinopril to 40mg daily. Arrange for an outpatient ophthalmology evaluation. Continue telemetry? Yes
[2017-07-10] MEDS ORDERED: LABETALOL HCL300 M1 PO ×2 (13:47→15:42)
[2017-07-10] MEDS ORDERED: LISINOPRIL40 M1 PO ×2 (13:47→15:42)
[2017-07-10 14:04] VITALS: BP 154/62
[2017-07-10 14:37] VITALS: BP 154/62
[2017-07-10 15:06] LABS: ABSOLUTE BASOPHIL COUNT 0 /CUMM (0.0-0.2); ABSOLUTE EOSINOPHIL COUNT 0 /CUMM (0.0-0.7); MEAN PLATELET VOLUME 9.4 FL (7.4-10.4); RBC DISTRIBUTION WIDTH 14.8 % (11.5-14.5)
[2017-07-10 15:09] LABS: ABSOLUTE GRANULOCYTE CT 6.1 /CUMM (1.4-6.5); ABSOLUTE LYMPH COUNT 0.8 /CUMM (1.2-3.4); ABSOLUTE MONOCYTE COUNT 0.5 /CUMM (0.10-0.60); BASOPHIL % 0.1 % (0.0-2.0); EOSINOPHIL % 0.4 % (0-5); HEMATOCRIT 33.9 % (37-47); MEAN CORPUSCULAR HGB CONC 32.3 G/DL (33.0-37.0); MEAN CORPUSCULAR VOLUME 86.7 FL (81.0-99.0); RED BLOOD CELL CT 3.91 /CUMM (4.20-5.40)
[2017-07-10 15:11] LABS: WHITE BLOOD CELL COUNT 7.5 /CUMM (4.8-10.8)
[2017-07-10 15:19] LABS: GRANULOCYTE % 82.4 % (42.2-75.2); PLATELET COUNT 270 /CUMM (130-400)
== END 2017-07-10 15:56 ==
LOC: ERH 11:05 → 1NO 14:25 → ERHI 14:25 → ENRESERV 15:38 → ENTRNSPT 16:37 → EDTRNSPTSTS 16:47 → EDTRNSPT 16:47 → 1NO 16:51 → CMPTRNSPT 17:03 → 1NO 07-10 10:28 → ENPENDDIS 07-10 12:31 → 1NO 07-10 15:56
PROVIDERS: Emergency Medicine; Internal Medicine Endocrinology, Diabetes & Metabolism; Student in an Organized Health Care Education/Training Program
DX: I16.0 Hypertensive urgency (principal); R10.32 Left lower quadrant pain; M79.605 Pain in left leg; R00.0 Tachycardia, unspecified
CPT/HCPCS: 6020; 36592; 71045; 74177; 80307; 81001; 82436; 87040; 93005; 93010; 93306; 96361; 96372; 96374; 96375; 99291; G0378; J0360; J1650; J3490

== ENCOUNTER 2017-07-19 14:47 | Emergency (ER) | payer OTHER, MEDICARE ==
[~2017-07-19] VITALS: Ht 162.6 cm; Wt 56.7 kg
[~2017-07-19 14:47] MED LIST: ASPIRIN81 M4 PO; ATORVASTATIN CA40 M1 PO; LABETALOL HCL200 M1 PO; LABETALOL HCL300 M1 PO; LISINOPRIL20 M1 PO; LISINOPRIL40 M1 PO; VITAMIN D31000 UNI2 PO
[2017-07-19] MEDS ORDERED: HYDROCHLOROTH12.5 M2 PO (15:00)
[2017-07-19 15:48] LABS: ABSOLUTE BASOPHIL COUNT 0 /CUMM (0.0-0.2); ABSOLUTE EOSINOPHIL COUNT 0.1 /CUMM (0.0-0.7); ABSOLUTE GRANULOCYTE CT 3.6 /CUMM (1.4-6.5); ABSOLUTE LYMPH COUNT 0.9 /CUMM (1.2-3.4); ABSOLUTE MONOCYTE COUNT 0.5 /CUMM (0.10-0.60); BASOPHIL % 0.1 % (0.0-2.0); EOSINOPHIL % 2.6 % (0-5); GRANULOCYTE % 70.6 % (42.2-75.2); HEMATOCRIT 31.3 % (37-47); MEAN CORPUSCULAR HGB 28.2 PG (27.0-31.0); MEAN CORPUSCULAR VOLUME 85.4 FL (81.0-99.0); MEAN PLATELET VOLUME 9.5 FL (7.4-10.4); PLATELET COUNT 263 /CUMM (130-400); RBC DISTRIBUTION WIDTH 14.5 % (11.5-14.5); RED BLOOD CELL CT 3.67 /CUMM (4.20-5.40)
[2017-07-19 16:00] LABS: WHITE BLOOD CELL COUNT 5.1 /CUMM (4.8-10.8)
--- NOTE | 2017-07-19 16:23 | ED GENERAL ADULT ---
History of Present Illness General Chief Complaint: General Adult Stated Complaint: HIGH BLOOD PRESSURE Source: patient, old records Exam Limitations: no limitations Vital Signs & Intake/Output Vital Signs & Intake/Output Vital Signs Date Time Temp Pulse Resp B/P B/P Pulse O2 O2 Flow FiO2 Mean Ox Delivery Rate 07/19 1756 62 157/67 07/19 1713 96.5 58 18 180/78 07/19 1644 178/76 07/19 1644 66 181/76 07/19 1621 96.5 58 15 178/71 07/19 1621 58 178/71 07/19 1450 96.5 71 15 190/70 98 Room Air Room Air Allergies Coded Allergies: No Known Allergies (07/19/17) Reconcile Medications Aspirin (Aspirin*) 81 MG TAB.CHEW 81 MG PO DAILY [facility] . Cholecalciferol (Vitamin D3) 1,000 UNIT TABLET 2,000 IU PO DAILY Vitamin D deficiency . Hydrochlorothiazide 12.5 MG TABLET 1 TAB PO DAILY WATER RETENTION (Reported) Labetalol HCl 300 MG TABLET 1 TAB PO BID bp . Lisinopril 40 MG TABLET 1 TAB PO DAILY bp .. Triage Note: PT SENT TO ED BY JASWANT FOR HYPERTENSION. PT RECENTLY DIAGNOSED WITH HYPERTENSION AFTER BEING ADMITTED TO THIS FACILITY 10 DAYS AGO FOR HYPERTENSIVE URGENCY AND STARTED ON NEW MEDS AND HAS BEEN COMPLIANT. DENIES DIZZINESS, CHANGE IN VISION, HEADACHE. 190/70 MANUALLY IN TRIAGE. Triage Nurses Notes Reviewed? yes Onset: Just prior to arrival Timing: recent history Severity: moderate No Modifying Factors: none LMP (ages 10-50): post menopausal : No Patient currently breastfeeds: No HPI: 9 days prior to admission patient was hospitalized for hypertension. Prior to admission she was a physician's office for follow-up and found to have elevated blood pressure. She denies fever chills nausea vomiting diarrhea abdominal pain chest pain shortness breath headache dysuria rash bleeding. Past History Travel History Traveled to [place] past 21 day No Medical History Any Pertinent Medical History? 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 . FATHER, . Relation not specified for: Diabetes mellitus (DM) FH: hypertension Hx Contributory? No Review of Systems Review of Systems Constitutional: Reports: no symptoms. EENTM: Reports: no symptoms. Respiratory: Reports: no symptoms. Cardiovascular: Reports: no symptoms. GI: Reports: no symptoms. Genitourinary: Reports: no symptoms. Musculoskeletal: Reports: no symptoms. Skin: Reports: no symptoms. Neurological/Psychological: Reports: no symptoms. Hematologic/Endocrine: Reports: no symptoms. Immunologic/Allergic: Reports: no symptoms. All Other Systems: Reviewed and Negative Physical Exam Physical Exam General Appearance: well developed/nourished, alert, awake, comfortable Head: atraumatic, normal appearance Eyes: Bilateral: normal appearance, PERRL, EOMI. Ears, Nose, Throat: normal pharynx, normal ENT inspection, hearing grossly normal Neck: normal inspection, supple, full range of motion, no midline tenderness Respiratory: normal breath sounds, chest non-tender, no respiratory distress, quiet respiration, lungs clear Cardiovascular: regular rate/rhythm, normal peripheral pulses, norml femoral pulses equa Peripheral Pulses: 4+ carotid (R), 4+ carotid (L) Gastrointestinal: normal bowel sounds, soft, non-tender, no organomegaly Back: normal inspection, normal range of motion Extremities: normal inspection, normal capillary refill, normal range of motion, no edema Neurologic/Psych: no motor/sensory deficits, awake, alert, oriented x 3, normal gait, normal mood/affect, echo vasc tech II-XII nml as tested Reflexes: 2+: bicep (R), bicep (L). Skin: intact, normal color, warm/dry Lymphatic: no anterior cervical trinh Core Measures ACS in differential dx? No CVA/TIA Diagnosis: No Sepsis Present: No Sepsis Focused Exam Completed? No Progress Differential Diagnoses I considered the following diagnoses in my evaluation of the patient: Hypertension medication resistance Plan of Care: Orders Procedure Date/time Status TROPONIN LEVEL 07/19 1516 Complete MAGNESIUM 07/19 1516 Complete COMPREHENSIVE METABOLIC PANEL 07/19 1516 Complete CBC WITHOUT DIFFERENTIAL 07/19 151 Complete EKG 07/19 1516 Active Laboratory Tests 07/19/17 1529: Anion Gap 10, Estimated GFR > 60, BUN/Creatinine Ratio 25.7 H, Glucose 109 H, Calcium 10.0, Magnesium 1.9, Total Bilirubin 0.4, AST 19, ALT 21, Alkaline Phosphatase 52, Troponin I < 0.01, Total Protein 7.0, Albumin 4.0, Globulin 3.0, Albumin/Globulin Ratio 1.3, CBC w Diff NO MAN DIFF REQ, RBC 3.67 L, MCV 85.4, MCH 28.2, MCHC 33.0, RDW 14.5, MPV 9.5, Gran % 70.6, Lymphocytes % 16.8 L, Monocytes % 9.9 H, Eosinophils % 2.6, Basophils % 0.1, Absolute Granulocytes 3.6, Absolute Lymphocytes 0.9 L, Absolute Monocytes 0.5, Absolute Eosinophils 0.1, Absolute Basophils 0 Initial ED EKG: normal axis, normal intervals, normal p-waves, normal QRS complex, normal sinus rhythm, no ST T wave changes Prior EKG: unchanged Rhythm Strip: normal sinus rhythm Comments: Little change in BP with IV labetalol. Hydralazine ordered. Little change in BP. IV acetaminophen ordered with improved BP. Patient stoic, possibly pain is the cause of her HTN at this time. No additional antihypertensives to be ordered. Departure Departure Time of Disposition: 1843 Disposition: HOME OR SELF CARE Condition: Stable Clinical Impression Primary Impression: Hypertension Secondary Impressions: Leg pain, left Referrals: Bear Silva MD Additional Instructions: Tylenol 2-3 tabs every 4-6 hours for pain Departure Forms: Customer Survey General Discharge Information Critical Care Note Critical Care Note Critical Care Time: 30-74 min (45)
[2017-07-19 19:00] VITALS: BP 155/64
== END 2017-07-19 19:01 ==
LOC: ERH 14:47
PROVIDERS: Emergency Medicine
DX: I10 Essential (primary) hypertension (principal); M79.605 Pain in left leg
CPT/HCPCS: 93005; 93010; 96374; 96375; 99291; J0131; J0360

== ENCOUNTER 2017-08-15 12:04 | Emergency (ER) | payer OTHER, MEDICARE ==
[~2017-08-15] VITALS: Ht 162.6 cm; Wt 56.7 kg
[~2017-08-15 12:04] MED LIST changes: +HYDROCHLOROTH12.5 M2 PO
--- NOTE | 2017-08-15 15:22 | ED GENERAL ADULT ---
History of Present Illness General Chief Complaint: General Adult Stated Complaint: HIGH BP Source: patient Exam Limitations: no limitations Allergies Coded Allergies: No Known Allergies (07/19/17) Reconcile Medications Aspirin (Aspirin*) 81 MG TAB.CHEW 81 MG PO DAILY [facility] . Cholecalciferol (Vitamin D3) 1,000 UNIT TABLET 2,000 IU PO DAILY Vitamin D deficiency . Hydrochlorothiazide 12.5 MG TABLET 1 TAB PO DAILY WATER RETENTION (Reported) Labetalol HCl 300 MG TABLET 1 TAB PO BID bp . Lisinopril 40 MG TABLET 1 TAB PO DAILY bp .. Triage Note: 71 Y/O FEMALE STATES SHE WAS SENT BY HER DOCTOR FOR EVAL OF HYPERTENSION. PT STATES HYPERTENSTION IS A NEW DIAGNOSIS FOR HER AND SHE THINKS HER MEDICATIONS NEED TO BE CHANGED. PT DENIES ANY COMPLAINTS. DENIES ANY PAIN. DENIES HEADACHES. STATES SHE FEELS "WELL". MANUAL B/P 184/70 EKG ORDERED. Triage Nurses Notes Reviewed? yes Onset: Abrupt Timing: recent history Injury Environment: home Severity: moderate, severe HPI: 71-year-old female comes into the emergency room for high blood pressure. Patient was reportedly at her doctor's office and was found to have an elevated blood pressure was sent in for further evaluation. She currently denies any chest pain shortness of breath lightheaded dizziness headache. She denies any other associated symptoms. She comes in for further evaluation. (Sidney OLIVER,Lawson) Vital Signs & Intake/Output Vital Signs & Intake/Output Vital Signs Date Time Temp Pulse Resp B/P B/P Pulse O2 O2 Flow FiO2 Mean Ox Delivery Rate 08/15 1953 98.3 124 20 169/70 98 Room Air 08/15 193 97 20 215/100 08/15 1928 97 20 215/100 08/15 192 97 20 215/100 97 Room Air 08/15 1730 98.9 109 18 200/50 97 Room Air 08/15 1644 77 194/50 08/15 1551 Room Air 08/15 1548 72 230/80 08/15 1407 97.8 79 18 189/73 97 Room Air 08/15 1251 96.4 76 18 184/70 98 Room Air (Yessica ROLDAN,Salomon [place]) Past History Travel History Traveled to [place] past 21 day No Medical History Any Pertinent Medical History? 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 . FATHER, . Relation not specified for: Diabetes mellitus (DM) FH: hypertension Hx Contributory? No (Lawson Gaston) Review of Systems Review of Systems Constitutional: Reports: no symptoms. EENTM: Reports: no symptoms. Respiratory: Reports: no symptoms. Cardiovascular: Reports: see HPI. GI: Reports: no symptoms. Genitourinary: Reports: no symptoms. Musculoskeletal: Reports: no symptoms. Skin: Reports: no symptoms. Neurological/Psychological: Reports: no symptoms. Hematologic/Endocrine: Reports: no symptoms. Immunologic/Allergic: Reports: no symptoms. All Other Systems: Reviewed and Negative (Lawson Gaston) Physical Exam Physical Exam General Appearance: well developed/nourished, no apparent distress, alert, awake Head: atraumatic, normal appearance Eyes: Bilateral: normal appearance, EOMI. Ears, Nose, Throat: normal ENT inspection, hearing grossly normal Neck: normal inspection Respiratory: normal breath sounds, no respiratory distress Cardiovascular: regular rate/rhythm Gastrointestinal: soft Back: normal inspection Extremities: normal inspection Neurologic/Psych: awake, alert, oriented x 3, normal gait Skin: intact, normal color Core Measures ACS in differential dx? No CVA/TIA Diagnosis: No Sepsis Present: No Sepsis Focused Exam Completed? No (Lawson Gaston) Progress Differential Diagnoses I considered the following diagnoses in my evaluation of the patient: Hypertensive urgency, CVA, hypertensive emergency, end organ damage, Initial ED EKG: normal sinus rhythm, rate (96) Prior EKG: unchanged (no significant changes) (Lawson Gaston) Plan of Care: Orders Procedure Date/time Status EKG 08/15 1832 Active Telemetry/Transit Mix Operator 08/15 1522 Active URINALYSIS 08/15 1522 Complete TROPONIN LEVEL 08/15 1522 Complete COMPREHENSIVE METABOLIC PANEL 08/15 1522 Complete CBC WITHOUT DIFFERENTIAL 08/15 1522 Complete EKG 08/15 1256 Active Laboratory Tests 08/15/17 1536: Urine Color YEL, Urine Clarity CLEAR, Urine pH 7.0, Ur Specific Morgan 1.015, Urine Protein NEG, Urine Ketones NEG, Urine Nitrite NEG, Urine Bilirubin NEG, Urine Urobilinogen 0.2, Ur Leukocyte Esterase LARGE H, Ur Microscopic SEDIMENT EXAMINED, Urine WBC 25-50 H, Ur Epithelial Cells RARE, Urine Bacteria MOD H, Urine Hemoglobin NEG, Urine Glucose NEG 08/15/17 1530: Anion Gap 12, Estimated GFR > 60, BUN/Creatinine Ratio 35.0 H, Glucose 121 H, Calcium 10.2, Total Bilirubin 0.6, AST 25, ALT 24, Alkaline Phosphatase 57, Troponin I < 0.01, Total Protein 8.1, Albumin 4.8, Globulin 3.3, Albumin/ Globulin Ratio 1.5, CBC w Diff NO MAN DIFF REQ, RBC 3.82 L, MCV 86.7, MCH 28.4, MCHC 32.8 L, RDW 14.8 H, MPV 9.3, Gran % 67.0, Lymphocytes % 20.6, Monocytes % 9.7 H, Eosinophils % 2.6, Basophils % 0.1, Absolute Granulocytes 3.8, Absolute Lymphocytes 1.2, Absolute Monocytes 0.5, Absolute Eosinophils 0.1, Absolute Basophils 0 (Yessica ROLDAN,Salomon [place]) Departure Departure Disposition: HOME OR SELF CARE Condition: Stable Clinical Impression Primary Impression: Hypertension Referrals: Evelina Hoyt MD (PCP/Family) Additional Instructions: Increase her hydrochlorothiazide to 25 mg. Follow-up with your primary care doctor. Return if any concerns worsening symptoms. Please go over all results of today's visit with your primary care doctor. Contact your primary care doctor to let them know you were here in the emergency room. There may be nonspecific findings which may not be related to your visit today here in the emergency room but may require further evaluation and chronic monitoring by your primary care doctor. If you had a laceration today the chance of foreign body always remains. You should follow-up with your primary care doctor for recheck in 3-5 days for a wound check. If you had an x-ray done there is a chance that a fracture could have been missed on initial read and you should follow-up with your primary care doctor for repeat x-rays if symptoms persist. If your blood pressure was elevated here in the emergency room please have rechecked by sofie primary care doctor within the next 48. If you were prescribed a narcotic here in the emergency room or any type of controlled substances you're not allowed to drive while taking this medication or operate any type of heavy machinery. Narcotics can make you feel lightheaded dizziness nausea and can cause constipation. You may need to cotton picking machine operator a stool softener. Thank you for choosing [facility] emergency room. Please return to the emergency room immediately if you have any other concerns worsening of symptoms. Departure Forms: Customer Survey General Discharge Information Comments 08/15/2017 8:35:19 PM Patient has been reevaluated multiple times here in the emergency room. Her blood pressure is improved. She continues to remain asymptomatic. Patient was seen by Dr. Juan. I feel the patient needs better blood pressure management with her pills at home. Her doctor is increasing her blood pressure meds dosing. She will follow up as an outpatient. She has not had any chest pain or shortness of breath or headache or vomiting. She has no neuro deficits. I do not feel she requires inpatient management at this time. (Lawson Gaston) PA/CARDER BLANKETS Co-Sign Statement Statement: ED Attending supervision documentation- [X] I saw and evaluated the patient. I have also reviewed all the pertinent lab results and diagnostic results. I agree with the findings and the plan of care as documented in the PA's/CARDER BLANKETS's documentation. Patient presents for evaluation of severe hypertension. Physical examination reveals a comfortable appearing woman in no acute respiratory distress and a nonfocal neurologic examination. [] I have reviewed the ED Record and agree with the PA's/CARDER BLANKETS's documentation. [] Additions or exceptions (if any) to the PAs/CARDER BLANKETS's note and plan are summarized below: [] (Yessica ROLDAN,Salomon [place]) Critical Care Note Critical Care Note Critical Care Time: non-applicable (Lawson Gaston)
[2017-08-15 15:52] LABS: ABSOLUTE BASOPHIL COUNT 0 /CUMM (0.0-0.2); ABSOLUTE EOSINOPHIL COUNT 0.1 /CUMM (0.0-0.7); ABSOLUTE GRANULOCYTE CT 3.8 /CUMM (1.4-6.5); ABSOLUTE LYMPH COUNT 1.2 /CUMM (1.2-3.4); ABSOLUTE MONOCYTE COUNT 0.5 /CUMM (0.10-0.60); BASOPHIL % 0.1 % (0.0-2.0); EOSINOPHIL % 2.6 % (0-5); HEMATOCRIT 33.1 % (37-47); MEAN CORPUSCULAR HGB 28.4 PG (27.0-31.0); MEAN CORPUSCULAR HGB CONC 32.8 G/DL (33.0-37.0); MEAN CORPUSCULAR VOLUME 86.7 FL (81.0-99.0); MEAN PLATELET VOLUME 9.3 FL (7.4-10.4); PLATELET COUNT 283 /CUMM (130-400); RBC DISTRIBUTION WIDTH 14.8 % (11.5-14.5); RED BLOOD CELL CT 3.82 /CUMM (4.20-5.40); WHITE BLOOD CELL COUNT 5.6 /CUMM (4.8-10.8)
[2017-08-15 19:54] VITALS: BP 169/70
== END 2017-08-15 20:45 ==
LOC: ERH 12:04
PROVIDERS: Physician Assistant Medical
DX: I10 Essential (primary) hypertension (principal)
CPT/HCPCS: 81001; 93005; 93010; 96374; 96376; J0360